=== PATIENT | female | born 1955 | race Asian ===

== ENCOUNTER 2023-08-23 07:30 | Inpatient (IN) | payer MEDICAID, OTHER ==
[~2023-08-23] VITALS: Ht 157.5 cm; Wt 84.1 kg
[~2023-08-23 07:30] MED LIST: UNK HTN MEDS; [UNRECOGNIZED DRUG - REMARK]
[2023-08-23 07:57] LABS: BASOPHILS % (AUTO) 0.5 % (0.0-2.0); EOSINOPHILS % (AUTO) 0.5 % (1.0-6.0); HEMATOCRIT 42.2 % (36-46); HEMOGLOBIN 14.1 g/dL (12.0-16.0); LYMPHOCYTES # (AUTO) 0.9 K/uL (1.0-4.8); LYMPHOCYTES % (AUTO) 10.7 % (22.0-44.0); MEAN CORPUSCULAR HEMOGLOBIN 30.5 pg (26.0-34.0); MEAN CORPUSCULAR HGB CONC 33.3 G/dL (31.0-37.0); MEAN CORPUSCULAR VOLUME 92 fL (80-100); MONOCYTES # (AUTO) 0.6 K/uL (0.1-1.0); MONOCYTES % (AUTO) 7.9 % (2.0-9.0); NEUTROPHILS # (AUTO) 6.6 K/uL (1.8-7.7); NEUTROPHILS % (AUTO) 80.4 % (40.0-70.0); PLATELET COUNT (AUTO) 278 K/uL (150-450); RED BLOOD CELL COUNT(AUTO) 4.61 MIL/uL (4.00-5.20); RED CELL DISTRIBUTION WIDTH 14.4 % (11.5-14.5); WHITE BLOOD COUNT (AUTO) 8.2 K/uL (4.5-11.0)
[2023-08-23 08:01] LABS: COVID AG,FIA SOURCE NASAL SWAB
[2023-08-23 08:09] LABS: ANION GAP 11 mmol/L (8-16); CALCIUM, TOTAL 8.5 mg/dL (8.8-10.5); CARBON DIOXIDE 27 mmol/L (22-29); CHLORIDE 100 mmol/L (98-107); CREATININE 0.86 mg/dL (0.60-1.30); GLOMERULAR FILTR. RATE CALC > 60 mL/min (>60); GLUCOSE,RANDOM 142 mg/dL (70-110); POTASSIUM 3.7 mmol/L (3.5-5.1); SODIUM SERUM 138 mmol/L (136-145); UREA NITROGEN, BLOOD 7 mg/dL (7-18)
[2023-08-23 08:16] LABS: ALANINE AMINOTRANSFERASE 41 U/L (12-78); ALBUMIN 3.2 g/dL (3.4-5.0); ALKALINE PHOSPHATASE 94 U/L (46-116); ASPARTATE AMINOTRANSFERASE 31 U/L (15-37); BILIRUBIN,TOTAL 0.7 mg/dL (0.1-1.0); TOTAL PROTEIN, SERUM 7.3 g/dL (6.4-8.2)
[2023-08-23] MEDS ORDERED: CefTRIAXone 1 GM/DEXTROSE 50 ML IV ONE (08:30)
[2023-08-23] MEDS ORDERED: SODIUM CHLORIDE 0.9% 1,500 ML IV ONE (08:30)
[2023-08-23] MEDS ORDERED: 0.9% SODIUM CHLORIDE 10 ML SYRINGE IVP PRN (08:30)
[2023-08-23 08:48] LABS: INFLUENZA TYPE A NEGATIVE FOR TYPE A (NEGATIVE); INFLUENZA TYPE B POSITIVE FOR TYPE B (NEGATIVE)
[2023-08-23 08:49] LABS: SARS-COV2 (COVID) ANTIGEN,FIA Positive (Negative)
[2023-08-23 08:59] LABS: LACTIC ACID 1.6 mmol/L (0.4-2.0)
[2023-08-23 09:02] LABS: PROTHROMBIN TIME 10.6 SEC (9.4-11.6)
[2023-08-23 09:05] LABS: TROPONIN I-HIGH SENSITIVITY 7 ng/L (<51)
[2023-08-23 09:25] LABS: CREATINE KINASE, TOTAL ONLY 52 U/L (26-192)
[2023-08-23] MEDS ORDERED: KETOROLAC TROMETHAMINE 30 MG/ML VIAL IVP ONE (11:30)
[2023-08-23] MEDS ORDERED: ACETAMINOPHEN 500 MG TABLET PO ONE (11:30)
[2023-08-23 11:45] LABS: APPEARANCE,URINE CLEAR (CLEAR); BILIRUBIN,URINE NEGATIVE (NEGATIVE); COLOR,URINE LIGHT YELLOW (YELLOW); GLUCOSE, URINE (UA) NEGATIVE (NEGATIVE); KETONES,URINE NEGATIVE (NEGATIVE); LEUKOCYTE ESTERASE ,URINE NEGATIVE (NEGATIVE); NITRATE,URINE NEGATIVE (NEGATIVE); OCCULT BLOOD,URINE NEGATIVE (NEGATIVE); PROTEIN,URINE NEGATIVE (NEGATIVE); SPECIFIC GRAVITIY, URINE 1.013 (1.003-1.030); UROBILINOGEN,URINE <=1.0 mg/dL (<=1.0)
[2023-08-23 13:03] VITALS: BP 128/77; PULSE 109; RESP 18; TEMP 99.3
[2023-08-23] MEDS ORDERED: HYDROCODONE/ACETAMINOPHEN 5-325 MG TABLET PO PRN (13:30)
[2023-08-23] MEDS ORDERED: REMDESIVIR 200 MG in SODIUM CHLORIDE 0.9% 250 ML IV ONE (13:30)
[2023-08-23] MEDS ORDERED: MORPHINE SULFATE 2 MG/ML SYRINGE IVP PRN (13:30)
[2023-08-23] MEDS ORDERED: BISACODYL 10 MG RECTAL RECTAL SUPPOSITORY PR PRN (13:30)
[2023-08-23] MEDS ORDERED: ONDANSETRON HCL 4 MG/2 ML VIAL IVP PRN (13:30)
[2023-08-23] MEDS ORDERED: ZOLPIDEM TARTRATE 5 MG TABLET PO PRN (13:30)
[2023-08-23] MEDS ORDERED: MAGNESIUM HYDROXIDE SUSPENSION 30 ML UDCUP PO PRN (13:30)
[2023-08-23] MEDS ORDERED: DEXTROSE 50%-WATER 25 GM/50 ML SYRINGE IVP PRN (13:45)
[2023-08-23] MEDS ORDERED: INSULIN LISPRO 100 UNITS/ML SQ PRN (13:45)
[2023-08-23] MEDS ORDERED: VENL-68 PO (13:59)
[2023-08-23] MEDS ORDERED: AMLO10TA55 PO (13:59)
[2023-08-23] MEDS ORDERED: FAMO20 PO (13:59)
[2023-08-23] MEDS ORDERED: SUMA25TA15 PO (13:59)
[2023-08-23] MEDS ORDERED: GABA-1181 PO (13:59)
[2023-08-23] MEDS ORDERED: OMEP40CA21 PO (13:59)
[2023-08-23] MEDS ORDERED: ASPI81TA39 PO (13:59)
[2023-08-23] MEDS ORDERED: CHOL200059 PO (13:59)
[2023-08-23] MEDS ORDERED: CYCL-448 PO (13:59)
[2023-08-23] MEDS ORDERED: NAPR-1025 PO (13:59)
[2023-08-23] MEDS ORDERED: TRAZ-283 PO (13:59)
[2023-08-23] MEDS ORDERED: SODIUM CHLORIDE 0.9% 500 ML IV ONE (15:02)
[2023-08-23] MEDS: HEPARIN SODIUM,PORCINE 5,000 UNITS/ML VIAL SQ SCH ×2 (15:15→23:27)
[2023-08-23] MEDS: DEXAMETHASONE 4 MG TABLET PO SCH (15:38)
[2023-08-23] MEDS ORDERED: PNEUMOCOCCAL VACCINE POLYVALENT 0.5 ML SYRINGE [PPSV23] IM. ONE (17:00)
[2023-08-23 20:14] VITALS: BP 126/70; PULSE 93; RESP 20; TEMP 98.9
[2023-08-23] MEDS: OSELTAMIVIR PHOSPHATE 30 MG CAPSULE PO SCH (20:15)
[2023-08-23] MEDS: DOCUSATE SODIUM 100 MG CAPSULE PO SCH (20:15)
[2023-08-24 03:56] VITALS: BP 130/71; PULSE 93; RESP 20; TEMP 98.5
[2023-08-24] MEDS: ACETAMINOPHEN 325 MG TABLET PO PRN ×3 (04:06→20:46)
[2023-08-24] MEDS: BENZOCAINE/MENTHOL LOZENGE PO PRN ×2 (06:19→20:46)
[2023-08-24] MEDS: GuaiFENesin/D-METHORPHAN [SUGAR-FREE] 200-20MG/10 ML SYRUP UDCUP PO PRN ×3 (06:20→20:46)
[2023-08-24 06:35] LABS: BASOPHILS % (AUTO) 0.3 % (0.0-2.0); EOSINOPHILS % (AUTO) 0 % (1.0-6.0); HEMATOCRIT 37.5 % (36-46); HEMOGLOBIN 12.5 g/dL (12.0-16.0); LYMPHOCYTES # (AUTO) 0.6 K/uL (1.0-4.8); LYMPHOCYTES % (AUTO) 14.6 % (22.0-44.0); MEAN CORPUSCULAR HEMOGLOBIN 30.4 pg (26.0-34.0); MEAN CORPUSCULAR HGB CONC 33.3 G/dL (31.0-37.0); MEAN CORPUSCULAR VOLUME 91 fL (80-100); MONOCYTES # (AUTO) 0.1 K/uL (0.1-1.0); MONOCYTES % (AUTO) 2.9 % (2.0-9.0); NEUTROPHILS # (AUTO) 3.6 K/uL (1.8-7.7); NEUTROPHILS % (AUTO) 82.2 % (40.0-70.0); PLATELET COUNT (AUTO) 253 K/uL (150-450); RED CELL DISTRIBUTION WIDTH 14.4 % (11.5-14.5); WHITE BLOOD COUNT (AUTO) 4.3 K/uL (4.5-11.0)
[2023-08-24 07:19] LABS: ALANINE AMINOTRANSFERASE 41 U/L (12-78); ALBUMIN 2.6 g/dL (3.4-5.0); ALKALINE PHOSPHATASE 80 U/L (46-116); ANION GAP 11 mmol/L (8-16); ASPARTATE AMINOTRANSFERASE 29 U/L (15-37); BILIRUBIN,TOTAL 0.3 mg/dL (0.1-1.0); CALCIUM, TOTAL 8.2 mg/dL (8.8-10.5); CARBON DIOXIDE 23 mmol/L (22-29); CHLORIDE 104 mmol/L (98-107); CREATININE 0.66 mg/dL (0.60-1.30); GLOMERULAR FILTR. RATE CALC > 60 mL/min (>60); GLUCOSE,RANDOM 171 mg/dL (70-110); POTASSIUM 3.4 mmol/L (3.5-5.1); SODIUM SERUM 138 mmol/L (136-145); TOTAL PROTEIN, SERUM 6.5 g/dL (6.4-8.2); UREA NITROGEN, BLOOD 9 mg/dL (7-18)
[2023-08-24 08:24] VITALS: BP 130/75; PULSE 71; RESP 19; TEMP 98.5
[2023-08-24] MEDS: PANTOPRAZOLE SODIUM 40 MG DR TABLET PO SCH (08:54)
[2023-08-24] MEDS: HEPARIN SODIUM,PORCINE 5,000 UNITS/ML VIAL SQ SCH ×3 (08:54→23:50)
[2023-08-24] MEDS: OSELTAMIVIR PHOSPHATE 30 MG CAPSULE PO SCH ×2 (08:54→20:36)
[2023-08-24] MEDS: DOCUSATE SODIUM 100 MG CAPSULE PO SCH ×2 (08:54→20:36)
[2023-08-24] MEDS: DEXAMETHASONE 4 MG TABLET PO SCH (08:55)
[2023-08-24] MEDS ORDERED: POTASSIUM CHLORIDE 20 MEQ ER TABLET PO ONE (11:45)
[2023-08-24] MEDS: REMDESIVIR 100 MG in SODIUM CHLORIDE 0.9% 250 ML IV SCH (16:01)
[2023-08-24 16:25] VITALS: BP 131/79; PULSE 84; RESP 19; TEMP 98.2
[2023-08-24 20:06] VITALS: BP 114/61; PULSE 81; RESP 18; TEMP 98.4
[2023-08-25 05:35] VITALS: BP 130/72; PULSE 72; RESP 20; TEMP 98.2
[2023-08-25 06:29] LABS: BASOPHILS % (AUTO) 0.1 % (0.0-2.0); EOSINOPHILS % (AUTO) 0 % (1.0-6.0); HEMOGLOBIN 12.6 g/dL (12.0-16.0); LYMPHOCYTES # (AUTO) 1.1 K/uL (1.0-4.8); MEAN CORPUSCULAR HEMOGLOBIN 30.9 pg (26.0-34.0); MEAN CORPUSCULAR HGB CONC 34.1 G/dL (31.0-37.0); MEAN CORPUSCULAR VOLUME 91 fL (80-100); MONOCYTES # (AUTO) 0.7 K/uL (0.1-1.0); NEUTROPHILS % (AUTO) 81.9 % (40.0-70.0); PLATELET COUNT (AUTO) 268 K/uL (150-450); RED BLOOD CELL COUNT(AUTO) 4.07 MIL/uL (4.00-5.20); RED CELL DISTRIBUTION WIDTH 14.3 % (11.5-14.5); WHITE BLOOD COUNT (AUTO) 9.7 K/uL (4.5-11.0)
[2023-08-25 06:39] LABS: ALANINE AMINOTRANSFERASE 35 U/L (12-78); ALBUMIN 2.6 g/dL (3.4-5.0); ALKALINE PHOSPHATASE 75 U/L (46-116); ANION GAP 11 mmol/L (8-16); ASPARTATE AMINOTRANSFERASE 27 U/L (15-37); BILIRUBIN,TOTAL 0.3 mg/dL (0.1-1.0); CALCIUM, TOTAL 8.5 mg/dL (8.8-10.5); CARBON DIOXIDE 23 mmol/L (22-29); CHLORIDE 106 mmol/L (98-107); CREATININE 0.76 mg/dL (0.60-1.30); GLOMERULAR FILTR. RATE CALC > 60 mL/min (>60); GLUCOSE,RANDOM 221 mg/dL (70-110); POTASSIUM 3.3 mmol/L (3.5-5.1); SODIUM SERUM 140 mmol/L (136-145); TOTAL PROTEIN, SERUM 6.6 g/dL (6.4-8.2); UREA NITROGEN, BLOOD 13 mg/dL (7-18)
[2023-08-25] MEDS: DEXAMETHASONE 4 MG TABLET PO SCH (08:16)
[2023-08-25] MEDS: OSELTAMIVIR PHOSPHATE 30 MG CAPSULE PO SCH ×2 (08:16→20:21)
[2023-08-25] MEDS: HEPARIN SODIUM,PORCINE 5,000 UNITS/ML VIAL SQ SCH ×3 (08:17→23:41)
[2023-08-25] MEDS: DOCUSATE SODIUM 100 MG CAPSULE PO SCH ×2 (08:17→20:21)
[2023-08-25] MEDS: PANTOPRAZOLE SODIUM 40 MG DR TABLET PO SCH (08:17)
[2023-08-25 08:26] VITALS: BP 123/65; PULSE 66; RESP 19; TEMP 98.7
[2023-08-25] MEDS ORDERED: DEXTROSE 50%-WATER 25 GM/50 ML SYRINGE IVP PRN (11:30)
[2023-08-25] MEDS ORDERED: POTASSIUM CHLORIDE 20 MEQ ER TABLET PO PRN (11:30)
[2023-08-25] MEDS ORDERED: POTASSIUM CHL 10 MEQ/WATER 50 ML IV PRN (11:30)
[2023-08-25] MEDS: INSULIN LISPRO 100 UNITS/ML SQ PRN ×3 (12:14→20:21)
[2023-08-25] MEDS: REMDESIVIR 100 MG in SODIUM CHLORIDE 0.9% 250 ML IV SCH (15:36)
[2023-08-25 19:30] VITALS: BP 98/59; PULSE 65; RESP 16; TEMP 98
[2023-08-25 19:51] LABS: GLUCOMETER DEV NAME(LOC) 6N.1B; GLUCOSE,POINT OF CARE 181 MG/DL (70-110)
[2023-08-25 19:51] LABS: GLUCOMETER DEV NAME(LOC) 6N.1B; GLUCOSE,POINT OF CARE 224 MG/DL (70-110)
[2023-08-26 04:00] VITALS: BP 134/85; PULSE 72; RESP 16; TEMP 98.3
[2023-08-26 06:56] LABS: GLUCOMETER DEV NAME(LOC) 6N.2B; GLUCOSE,POINT OF CARE 196 MG/DL (70-110)
[2023-08-26 07:01] LABS: ALBUMIN 2.6 g/dL (3.4-5.0); BILIRUBIN,TOTAL 0.3 mg/dL (0.1-1.0); CALCIUM, TOTAL 8.6 mg/dL (8.8-10.5); CREATININE 1.09 mg/dL (0.60-1.30); TOTAL PROTEIN, SERUM 6.5 g/dL (6.4-8.2)
[2023-08-26 07:39] LABS: BASOPHILS % (AUTO) 0.1 % (0.0-2.0); EOSINOPHILS % (AUTO) 0.1 % (1.0-6.0); HEMATOCRIT 38.4 % (36-46); HEMOGLOBIN 12.8 g/dL (12.0-16.0); LYMPHOCYTES # (AUTO) 2.3 K/uL (1.0-4.8); LYMPHOCYTES % (AUTO) 24.8 % (22.0-44.0); MEAN CORPUSCULAR HEMOGLOBIN 30.8 pg (26.0-34.0); MEAN CORPUSCULAR HGB CONC 33.4 G/dL (31.0-37.0); MEAN CORPUSCULAR VOLUME 92 fL (80-100); MONOCYTES # (AUTO) 0.6 K/uL (0.1-1.0); MONOCYTES % (AUTO) 6.8 % (2.0-9.0); NEUTROPHILS # (AUTO) 6.4 K/uL (1.8-7.7); NEUTROPHILS % (AUTO) 68.2 % (40.0-70.0); PLATELET COUNT (AUTO) 268 K/uL (150-450); RED BLOOD CELL COUNT(AUTO) 4.18 MIL/uL (4.00-5.20); RED CELL DISTRIBUTION WIDTH 14.6 % (11.5-14.5); WHITE BLOOD COUNT (AUTO) 9.4 K/uL (4.5-11.0)
[2023-08-26] MEDS: DOCUSATE SODIUM 100 MG CAPSULE PO SCH (08:00)
[2023-08-26] MEDS: PANTOPRAZOLE SODIUM 40 MG DR TABLET PO SCH (08:00)
[2023-08-26] MEDS: OSELTAMIVIR PHOSPHATE 30 MG CAPSULE PO SCH (08:00)
[2023-08-26] MEDS: HEPARIN SODIUM,PORCINE 5,000 UNITS/ML VIAL SQ SCH ×2 (08:01→15:45)
[2023-08-26] MEDS ORDERED: OSEL75 PO (11:36)
[2023-08-26] MEDS: REMDESIVIR 100 MG in SODIUM CHLORIDE 0.9% 250 ML IV SCH (15:45)
[2023-08-26 21:36] LABS: GLUCOMETER DEV NAME(LOC) 4E.2; GLUCOSE,POINT OF CARE 120 MG/DL (70-110)
[2023-08-27 06:01] LABS: GLUCOMETER DEV NAME(LOC) 6N.2B; GLUCOSE,POINT OF CARE 138 MG/DL (70-110)
[2023-08-27 06:01] LABS: GLUCOMETER DEV NAME(LOC) 6N.2B; GLUCOSE,POINT OF CARE 100 MG/DL (70-110)
== END 2023-08-26 19:25 | disposition home or self-care (01) | DRG 720 ==
LOC: EMS 07:39 → 6N 12:47
PROVIDERS: ADMIT Internal Medicine; ATTEND Internal Medicine
PROC: XW033E5 Introduction of Remdesivir Anti-infective into Peripheral Vein, Percutaneous Approach, New Technology Group 5 (ICD-10-PCS; principal; 2023-08-23)
DX: A41.9 Sepsis, unspecified organism (principal); J96.91 Respiratory failure, unspecified with hypoxia; J12.82 Pneumonia due to coronavirus disease 2019; J10.08 Influenza due to other identified influenza virus with other specified pneumonia; U07.1 COVID-19; E11.40 Type 2 diabetes mellitus with diabetic neuropathy, unspecified; E87.6 Hypokalemia; E78.00 Pure hypercholesterolemia, unspecified; I10 Essential (primary) hypertension; E66.9 Obesity, unspecified; Z68.33 Body mass index [BMI] 33.0-33.9, adult
CPT/HCPCS: 51702; 71045; 80053; 81003; 82550; 82962; 83605; 83880; 84132; 84145; 84484; 85025; 85610; 87040; 87804; 93005; 99291; J0696; J1644; J1885; J7030; J7040; J7050; J8540; Q9967; 36415-L1; 36415-TC

== ENCOUNTER 2024-07-09 06:55 | Emergency (ER) | payer OTHER ==
[~2024-07-09] VITALS: Ht 157.5 cm; Wt 65.9 kg
[~2024-07-09 06:55] MED LIST changes: +ASPI81TA39 PO; +CHOL200059 PO; +METF-446 PO; +METO10TA3 PO; +OMEP40CA21 PO; +ONDA-104 PO; +OSEL75CA45 PO; +SUMA25TA15 PO; -UNK HTN MEDS; -[UNRECOGNIZED DRUG - REMARK]
[2024-07-09 07:00] VITALS: TEMP 97.9
[2024-07-09] MEDS: KETOROLAC TROMETHAMINE 60 MG/2 ML VIAL IM ONE (07:47)
[2024-07-09] MEDS: PENICILLIN V POTASSIUM 500 MG TABLET PO ONE (07:47)
[2024-07-09] MEDS ORDERED: PENI500T2 PO (07:56)
[2024-07-09] MEDS ORDERED: IBUP-1492 PO (07:56)
[2024-07-09 08:05] VITALS: BP 142/82; PULSE 96; RESP 16; O2SAT 98
== END 2024-07-09 08:16 | disposition home or self-care (01) ==
LOC: EMS 06:55
DX: K02.9 Dental caries, unspecified (principal); E11.9 Type 2 diabetes mellitus without complications; E78.00 Pure hypercholesterolemia, unspecified; I10 Essential (primary) hypertension
CPT/HCPCS: 99283; 96372; J1885

== ENCOUNTER → 2025-01-25 | Emergency (ER) | payer OTHER ==
[~2025-01-25] VITALS: Ht 152.4 cm; Wt 72.7 kg
[~2025-01-25] MED LIST changes: +AMLO10TA55 PO; +IBUP-1492 PO; +LOSA-381 PO; -OSEL75CA45 PO; +PENI500T2 PO; +SEMA3TAB4 PO
[2025-01-25 09:53] VITALS: TEMP 98.6
[2025-01-25 10:16] LABS: GLUCOMETER DEV NAME(LOC) ERT.6; GLUCOSE,POINT OF CARE 199 MG/DL (70-110)
[2025-01-25 10:18] VITALS: BP 154/79; PULSE 109; RESP 16; O2SAT 98
[2025-01-25] MEDS: ACETAMINOPHEN 500 MG TABLET PO ONE (10:28)
[2025-01-25 10:42] LABS: COVID AG,FIA SOURCE NASAL SWAB
[2025-01-25 11:07] LABS: RAPID GROUP A STREP NEGATIVE (NEGATIVE)
[2025-01-25 11:18] LABS: INFLUENZA TYPE A NEGATIVE FOR TYPE A (NEGATIVE); INFLUENZA TYPE B NEGATIVE FOR TYPE B (NEGATIVE); SARS-COV2 (COVID) ANTIGEN,FIA Negative (Negative)
== END | disposition home or self-care (01) ==
LOC: EMS 09:51
DX: J11.1 Influenza due to unidentified influenza virus with other respiratory manifestations (principal); E11.9 Type 2 diabetes mellitus without complications; E78.00 Pure hypercholesterolemia, unspecified; I10 Essential (primary) hypertension; Z79.82 Long term (current) use of aspirin; Z79.84 Long term (current) use of oral hypoglycemic drugs; Z79.899 Other long term (current) drug therapy; Z90.710 Acquired absence of both cervix and uterus; Z20.822 Contact with and (suspected) exposure to COVID-19
CPT/HCPCS: 71045; 82962; 87430; 87804; 99284